=== PATIENT | female | born 1975 | race Caucasian/White ===

== ENCOUNTER 2016-11-23 10:38 | Emergency (ER) | payer OTHER ==
[~2016-11-23] VITALS: Ht 167.6 cm; Wt 143.6 kg
--- NOTE | 2016-11-23 11:02 | ED.REPORT ---
HPI-General Illness Date of Service Nov 23, 2016 ED Provider: Floyd Palafox DO Patient is a 41 year old female with a hx of HTN, Hyperlipidemia, and benzodiazepine and alcohol dependence who presents to the ED via EMS from [facility] complaining of dizziness onset yesterday. Per medics, she had a near syncopal event yesterday. She also complains of fatigue, nausea, generalized weakness, and exacerbation of her chronic low back pain. She denies vomiting, diarrhea, LOC, or any other symptoms. She was recently admitted to [facility] for 12 days for detox. She was admitted to [facility] yesterday. Her last drink was a glass of wine 2 nights ago. She used to drink about a fifth of alcohol daily. Patient has been taking Ativan and Klonopin (1mg each) at night. Per [place] report, the patient left AMA. An ultrasound revealed cirrhosis. Her labs were as follows: 11/04: Bilirubin 8.8, INR 1.5, Hemoglobin 10.7, platelets 70, 11/12: Bilirubin 11, Creatinine 11, Ammonia 103 Nursing Notes Stated Complaint: ALCOHOL WITHDRAWALS Nursing Notes Reviewed: Yes Allergies: Coded Allergies: fluoxetine (Verified Allergy, Mild, LIGHTHEADED AND AGITATED, 11/23/16) mirtazapine (Verified Allergy, Mild, MOUTH BECOMES NUMB, DROOLS, 11/23/16) General Time Seen by MD: 11:01 Chief Complaint Dizziness Hx Obtained From: Patient, EMS Arrived By: Ambulance Sudden in Onset?: Yes Onset Occurred: Yesterday Symptom Duration: Since onset Severity: Maximum: Severe Recent Healthcare: Recent doctor visit, Recent hospitalization Past Medical History Past Medical History Notes: Dr. Lorenzo PCP Past Medical History Alcoholic hepatitis thrombocytopenia major depressive disorder anxiety hypertension alcholic cirrhosis of liver with ascites hepatic failure alcoholic gastritis with bleeding benzo dependence osteoarthritis of lumbar spine hyperlipidemia hypertriglyceridemia borderline DM thyroid disease Past Surgical History R arm Smoking History Unknown if Ever Smoker Social History Alcohol Use: In recovery Ambulatory Status Walker Review of Systems +near syncope Full Review of Systems Constitutional: Reports: Fatigue, Weakness - generalized GI: Reports: Nausea, Denies: Diarrhea, Vomiting Musculoskeletal: Reports: Back pain Neurologic: Reports: Dizziness, Denies: Change LOC Complete sys rev & neg: except as marked. Physical Exam Vital Signs Vital Signs Date Time Temp Pulse Resp B/P Pulse Ox O2 Delivery O2 Flow Rate FiO2 11/23/16 12:17 80 16 143/89 97 Room Air 11/23/16 11:05 36.9 83 18 128/91 97 Room Air Initial VS: Reviewed, Vital signs abnormal General/Constitutional: Awake, Alert Appearance / Presentation: Positive: Obese, morbidly Head / Eyes: Atraumatic, Normocephalic Neck: Full range of motion Respiratory / Chest: Breath sounds NL, Breath sounds = bilat, No respiratory distress Cardiovascular: Heart rate NL, Regular rhythm, Heart sounds NL Abdomen: Atraumatic, Soft Back: Atraumatic Skin: Warm, Dry Color / Condition: Positive: Jaundice present Neurologic: Oriented X3, Speech NL Strength 5/5 in all 4 extremities tremulous Psychiatric: Affect NL, Mood NL Interpretation & Diagnostics Lab Results Interpretation Result Diagram: 11/23/16 1127 11/23/16 1127 Test 11/23/16 11:27 11/23/16 12:00 11/23/16 12:10 White Blood Count 10.3th/mm3 (3.8-10.1) Red Blood Count 3.19mil/mm3 (3.90-5.20) Hemoglobin 10.7g/dL (12.0-15.6) Hematocrit 34.3% (35.0-46.0) Mean Corpuscular Volume 107.5fL (81-100) Mean Corpuscular Hemoglobin 33.5pg (27.0-35.0) Mean Corpuscular Hemoglobin Concent 31.2% (32.0-37.0) Red Cell Distribution Width 14.9% (12.3-15.4) Platelet Count 225bil/L (150-400) Neutrophils (%) (Auto) 70.4% (40-74) Lymphocytes (%) (Auto) 18.1% (14-46) Monocytes (%) (Auto) 9.2% (4-12) Eosinophils (%) (Auto) 0.9% (0-5) Basophils (%) (Auto) 1.1% (0-3) Prothrombin Time 14.5sec (8.1-12.5) Prothromb Time International Ratio 1.35ratio Sodium Level 138mEq/L (134-144) Potassium Level 3.7mEq/L (3.5-5.2) Chloride Level 100mEq/L (97-108) Carbon Dioxide Level 22mmol/L (18-29) Blood Urea Nitrogen 5mg/dL (6-20) Creatinine 0.38mg/dL (0.57-1.00) Estimat Glomerular Filtration Rate 270mL/min (>59) Glucose Level 122mg/dL (60-99) Calcium Level 9.1mg/dL (8.5-10.1) Magnesium Level 1.3mg/dL (1.6-2.6) Total Bilirubin 4.7mg/dL (0.0-1.2) Aspartate Amino Transf (AST/SGOT) 234U/L (0-50) Alanine Aminotransferase (ALT/SGPT) 32U/L (0-32) Alkaline Phosphatase 137U/L (25-150) Total Protein 6.5g/dL (6.4-8.4) Albumin 2.5g/dL (3.4-5.0) Lipase 34U/L (13-60) Alcohols < 10mg/dL (0-10) Hold Urine Received (Received) Ammonia 90ug/dL (18-53) Re-Eval/Medical Decision Med Decision/Clinical Course Findings of chronic liver disease, chronic elevated ammonia level, hypomagnesemia. Patient has stabilized after receiving benzodiazepines and magnesium. She will be discharged back to [facility]. Source of Hx: Old records Summary of Info: From [facility] were reviewed. Per [place] report, the patient left AMA. An ultrasound revealed cirrhosis. Her labs were as follows: 11/04: Bilirubin 8.8, INR 1.5, Hemoglobin 10.7, platelets 70, 11/12: Bilirubin 11, Creatinine 11, Ammonia 103 Time of Eval: 12:36 Patient Status: Condition improved Re-Evaluation/Progress Note: nurse noted pt got up and walked independently to the restroom and back. Time of Eval: 13:15 Re-Evaluation/Progress Note: Rechecked patient. She states she has not been taking Ativan or Klonapin. Discussed plan for discharge to [facility]. Patient understands and agrees with plan. All questions addressed at this time. Consultation : Referral / Consult Name: Ken Brunner MD Call Returned at: 13:26 Note: Discussed pt's case. Pt is OK to return to [facility]. Counseled Regarding: Diagnosis, Lab results, Need for follow-up, When/why to return to ED Discharge & Departure Primary Impression: Hypomagnesemia Additional Impression: Benzodiazepine dependence Disposition: Home Discharge Condition All VS Reviewed: Yes Condition: Stable Additional Instructions: Your magnesium is low. Begin taking Slow-Mag daily. Also we have discussed the need for you to continue your benzodiazepines while at [facility]. They will continue this for you. Return to the ER as needed. Scribe Attestation Portions of this note were transcribed by Berenice White. I, Dr. Palafox personally performed the history, physical exam and medical decision-making; I reviewed and confirmed the accuracy of the information in the transcribed note. Signed by: Bob Oliva, 11/23/16 at 1350 Floyd Palafox DO Nov 23, 2016 11:02 BERENICE WHITE Nov 23, 2016 11:11
[2016-11-23 11:05] VITALS: BP 128/91; PULSE 83; RESP 18; O2SAT 97
[2016-11-23] MEDS ORDERED: Thiamine Inj 100 MG, Folic Acid Inj 1 MG, Magnesium Sulfate 50% Inj 2 GM, Multivitamins... IV ONE ×5 (11:25)
[2016-11-23] MEDS ORDERED: Ondansetron 2 mg/mL 2 mL Inj IVPUSH PRN (11:25)
[2016-11-23 11:38] LABS: INR 1.35 ratio
[2016-11-23 11:39] LABS: Mean Corpuscular Hemoglobin 33.5 pg (27.0-35.0); Mean Corpuscular Volume 107.5 fL (81-100); Platelet Count 225 bil/L (150-400)
[2016-11-23 11:40] LABS: BASOPHILS % (AUTO) 1.1 % (0-3); EOSINOPHILS % (AUTO) 0.9 % (0-5); MONOCYTES % (AUTO) 9.2 % (4-12); NEUTROPHILS % (AUTO) 70.4 % (40-74)
[2016-11-23 11:45] LABS: Magnesium 1.3 mg/dL (1.6-2.6)
[2016-11-23 12:17] VITALS: BP 143/89; PULSE 80; RESP 16; O2SAT 97
[2016-11-23 12:23] LABS: Lipase 34 U/L (13-60)
[2016-11-23] MEDS ORDERED: Magnesium Sulf 2 Gm/50mL Water 2 GM in IV Premix 1 EACH IV ONE (12:30)
[2016-11-23] MEDS ORDERED: _LORazepam 1 mg Tablet PO PRN ×2 (13:45)
[2016-11-23 14:51] VITALS: BP 138/78; PULSE 90; RESP 16; O2SAT 97
== END 2016-11-23 14:52 | disposition home or self-care (01) ==
LOC: SED 10:38 → EDBD 10:38 → SED 14:52
DX: E83.42 Hypomagnesemia (principal); F13.20 Sedative, hypnotic or anxiolytic dependence, uncomplicated; I10 Essential (primary) hypertension; E78.5 Hyperlipidemia, unspecified; E07.9 Disorder of thyroid, unspecified; K70.31 Alcoholic cirrhosis of liver with ascites; G89.29 Other chronic pain
CPT/HCPCS: 36415; 80053; 81025; 82140; 83690; 83735; 85025; 85610; 96365; 96375; 99284; G0480; J2405; J3360; J3475; J7030